=== PATIENT | male | born 1990 | race Caucasian/White ===

== ENCOUNTER 2019-08-04 15:41 | Emergency (ER) | payer MEDICAID ==
[~2019-08-04] VITALS: Ht 180.3 cm; Wt 118.0 kg
[2019-08-04] MEDS ORDERED: KETOROLAC 30MG/ML VIAL IM ONE (18:15)
[2019-08-04 19:19] VITALS: BP 120/80
== END 2019-08-04 19:20 | disposition home or self-care (01) ==
LOC: ER 15:41
DX: J06.9 Acute upper respiratory infection, unspecified (principal); F17.210 Nicotine dependence, cigarettes, uncomplicated
CPT/HCPCS: 71045; 96372; 99283; J1885; Z7610

== ENCOUNTER 2019-09-02 18:45 | Emergency (ER) | payer MEDICAID, OTHER ==
[~2019-09-02] VITALS: Ht 180.3 cm; Wt 121.0 kg
[2019-09-02] MEDS ORDERED: KETOROLAC 30MG/ML VIAL IM ONE (19:30)
[2019-09-02 20:17] VITALS: BP 114/75
== END 2019-09-02 20:18 | disposition home or self-care (01) ==
LOC: ER 18:45
DX: M54.5 Low back pain (principal); F17.290 Nicotine dependence, other tobacco product, uncomplicated
CPT/HCPCS: 96372; 99283; J1885